=== PATIENT | male | born 2000 | race Caucasian/White ===

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

== ENCOUNTER 2021-12-12 19:57 | Emergency (ER) | payer SELFPAY ==
--- NOTE | 2021-12-13 06:54 | Emergency Department Report ---
ED General Adult HPI - General Chief complaint: GI Bleed Stated complaint: BLOOD IN STOOL Time Seen by Provider: 12/13/21 06:08 Source: patient, RN notes reviewed Mode of arrival: Ambulatory Limitations: No Limitations - History of Present Illness Initial comments: The patient is a pleasant and cooperative 21-year-old gentleman who is not known to myself previously, who presents to the ER today with a complaint of brown stool mixed with intermittent red blood, over the past few days. He endorses straining during defecation. Denies physical pain. The patient denies inserting foreign bodies into his rectum. He denies hematemesis. He reports he is not taking systemic anticoagulation at this time. He denies additional injuries and complaints. -: days(s) Consistency: intermittent Improves with: other (Not straining, not defecating) Worsens with: other (Straining, and defecation) - Related Data Previous Rx's Medication Instructions Recorded Last Taken Type cephALEXin [Keflex] 500 mg PO Q6HR #20 capsule 06/17/15 Unknown Rx Benzonatate [Tessalon Perle] 100 mg PO Q8H PRN #20 capsule 09/23/17 Unknown Rx Ibuprofen [Motrin] 600 mg PO Q8H PRN #30 tablet 09/23/17 Unknown Rx Nystas/Diphen/Xyl Visc/Mylanta 30 ml MM Q4H PRN 10 Days ml 09/23/17 Unknown Rx [Magic Mouthwash] Oseltamivir [Tamiflu] 75 mg PO BID #14 cap 09/23/17 Unknown Rx Allergies Allergy/AdvReac Type Severity Reaction Status Date / Time No Known Allergies Allergy Verified 05/07/14 21:16 ED Review of Systems ROS: Stated complaint: BLOOD IN STOOL Other details as noted in HPI Comment: All other systems reviewed and negative Gastrointestinal: as per HPI. denies: abdominal pain, nausea, vomiting, diarrhea, constipation, hematemesis, melena ED Past Medical Hx - Social History Smoking Status: Never Smoker - Medications Home Medications: Home Medications Medication Instructions Recorded Confirmed Last Taken Type cephALEXin [Keflex] 500 mg PO Q6HR #20 capsule 06/17/15 Unknown Rx Benzonatate [Tessalon Perle] 100 mg PO Q8H PRN #20 capsule 09/23/17 Unknown Rx Ibuprofen [Motrin] 600 mg PO Q8H PRN #30 tablet 09/23/17 Unknown Rx Nystas/Diphen/Xyl Visc/Mylanta 30 ml MM Q4H PRN 10 Days ml 09/23/17 Unknown Rx [Magic Mouthwash] Oseltamivir [Tamiflu] 75 mg PO BID #14 cap 09/23/17 Unknown Rx ED Physical Exam - General Limitations: No Limitations General appearance: alert, in no apparent distress - Head Head exam: Present: atraumatic, normocephalic - Eye Eye exam: Present: normal appearance, EOMI. Absent: nystagmus - ENT ENT exam: Present: normal exam, normal orophraynx, mucous membranes moist - Neck Neck exam: Present: normal inspection, full ROM. Absent: tenderness, meningismus - Respiratory Respiratory exam: Present: normal lung sounds bilaterally. Absent: respiratory distress, wheezes, rales, rhonchi, stridor, decreased breath sounds - Cardiovascular Cardiovascular Exam: Present: normal rhythm, bradycardia, normal heart sounds. Absent: tachycardia, irregular rhythm, systolic murmur, diastolic murmur, rubs, gallop - GI/Abdominal GI/Abdominal exam: Present: soft. Absent: distended, tenderness, guarding, rebound, rigid - Rectal Rectal exam: Present: normal inspection, normal rectal tone, other (Patient provides verbal consent for rectal examination, and digital rectal examination. Male personal banker is present during rectal examination. Anal fissure is appreciated at 6:00. There is brown stool. There is no obvious blood.). Absent: black stool, bloody stool, fecal impaction, hemorrhoids, mass - Extremities Exam Extremities exam: Present: normal inspection, full ROM, other (2+ pulses noted in the bilateral upper and lower extremities. There is no palpable cord. negative Homans sign. Muscular compartments are soft. The pelvis is stable.). Absent: pedal edema, calf tenderness - Back Exam Back exam: Present: normal inspection. Absent: tenderness, CVA tenderness (R), CVA tenderness (L), paraspinal tenderness, vertebral tenderness - Neurological Exam Neurological exam: Present: alert, oriented X3, other (No facial droop. Tongue midline. Extraocular movements intact bilaterally. Facial sensation intact to light touch in V1, V2, V3 distribution bilaterally. 5 and a 5 strength in 4 extremities. Sensation intact to light touch in 4 extremities.). Absent: motor sensory deficit - Psychiatric Psychiatric exam: Present: normal affect, normal mood - Skin Skin exam: Present: warm, dry, intact, normal color. Absent: rash ED Course Vital Signs 12/12/21 20:58 Temperature 98.1 F Pulse Rate 59 L Respiratory 16 Rate Blood Pressure 119/68 O2 Sat by Pulse 100 Oximetry ED Medical Decision Making - Lab Data Vital Signs 12/12/21 20:58 Temperature 98.1 F Pulse Rate 59 L Respiratory 16 Rate Blood Pressure 119/68 O2 Sat by Pulse 100 Oximetry - Medical Decision Making Differential diagnosis, including but not limited to: Anal fissure, constipation Assessment and plan: 21-year-old gentleman with a primary complaint of brown stool with red blood, found to have anal fissure at 6:00, no obvious blood on rectal examination. He is afebrile with reassuring vital signs, heart rate of 59 reviewed and appreciated, patient 21 years old, and is medically healthy. He is resting comfortably in her stretcher, and in no acute distress. Patient is educated as to the natural history of anal fissure. We discussed diet and lifestyle modifications. Also discussed recommendation to avoid blood thinning medications and NSAIDs. Patient articulates understanding. All questions answered. Critical care attestation.: If time is entered above; I have spent that time in minutes in the direct care of this critically ill patient, excluding procedure time. ED Disposition Clinical Impression: Anal fissure Disposition: 01 HOME / SELF CARE / HOMELESS Is pt being admited?: No Does the pt Need Aspirin: No Condition: Stable Instructions: Anal Fissure, Adult Additional Instructions: Patient is found to have an anal fissure, which is the most likely explanation for blood in stool. Treatment includes diet and lifestyle modifications. Increase consumption of water to 6 to 8 cups of water per day, and consume plenty of fiber, vegetables, lean protein, avoid consumption of simple carbohydrates, sugar, processed foods. Avoid consumption of Motrin, ibuprofen, Naprosyn, Aleve, NSAIDs, aspirin, to bacco and alcohol. Should take 3 to 6 weeks to resolve. Recommend follow-up with a primary care doctor or director of safety within the next month. Please return to the emergency room right away with new pain, worsened pain, migration of pain, projectile vomiting, change in mental status, confusion, inability tolerate liquid feeds, new, worsened or different symptoms not present on the initial emergency room evaluation Referrals: [facility] [Provider Group] - 3-5 Days [facility] [Provider Group] - 3-5 Days Forms: Work/School Release Form(ED)
[2021-12-13 08:10] VITALS: BP 118/80
== END 2021-12-13 08:10 | disposition home or self-care (01) ==
LOC: ED 19:57
DX: K60.2 Anal fissure, unspecified (principal)
CPT/HCPCS: 99282